=== PATIENT | female | born 1985 | race Caucasian/White ===

== ENCOUNTER → 2024-10-04 09:22 | Outpatient (REF) | payer BC, SELFPAY | LOC: PNTC 09:22 | PROVIDERS: ATTENDING PHYSICIAN Student in an Organized Health Care Education/Training Program | DX: O09.529 Supervision of elderly multigravida, unspecified trimester (principal); O34.219 Maternal care for unspecified type scar from previous cesarean delivery; O43.219 Placenta accreta, unspecified trimester | CPT/HCPCS: 76805; 93976 ==

== ENCOUNTER → 2024-11-06 08:58 | Outpatient (REF) | payer BC, SELFPAY | LOC: PNTC 08:58 | PROVIDERS: ATTENDING PHYSICIAN Student in an Organized Health Care Education/Training Program | DX: O09.529 Supervision of elderly multigravida, unspecified trimester (principal); O34.219 Maternal care for unspecified type scar from previous cesarean delivery | CPT/HCPCS: 76811 ==

== ENCOUNTER → 2024-12-04 09:02 | Outpatient (REF) | payer BC, SELFPAY | LOC: PNTC 09:02 | PROVIDERS: ATTENDING PHYSICIAN Student in an Organized Health Care Education/Training Program | DX: O36.5990 Maternal care for other known or suspected poor fetal growth, unspecified trimester, not applicable or unspecified (principal) | CPT/HCPCS: 76816 ==

== ENCOUNTER → 2025-01-01 10:57 | Outpatient (REF) | payer BC, SELFPAY | LOC: PNTC 10:57 | PROVIDERS: ATTENDING PHYSICIAN Student in an Organized Health Care Education/Training Program | DX: O36.5990 Maternal care for other known or suspected poor fetal growth, unspecified trimester, not applicable or unspecified (principal); O09.529 Supervision of elderly multigravida, unspecified trimester | CPT/HCPCS: 76816 ==

== ENCOUNTER → 2025-01-29 08:57 | Outpatient (REF) | payer BC, SELFPAY | LOC: PNTC 08:57 | PROVIDERS: ATTENDING PHYSICIAN Student in an Organized Health Care Education/Training Program | DX: O36.5990 Maternal care for other known or suspected poor fetal growth, unspecified trimester, not applicable or unspecified (principal) | CPT/HCPCS: 59025; 76816 ==

== ENCOUNTER → 2025-02-05 09:28 | Outpatient (REF) | payer BC, SELFPAY | LOC: PNTC 09:28 | PROVIDERS: ATTENDING PHYSICIAN Student in an Organized Health Care Education/Training Program | DX: O09.529 Supervision of elderly multigravida, unspecified trimester (principal) | CPT/HCPCS: 59025; 76815 ==

== ENCOUNTER → 2025-02-12 09:29 | Outpatient (REF) | payer BC, SELFPAY | LOC: PNTC 09:29 | PROVIDERS: ATTENDING PHYSICIAN Student in an Organized Health Care Education/Training Program | DX: O09.529 Supervision of elderly multigravida, unspecified trimester (principal) | CPT/HCPCS: 59025; 76815 ==

== ENCOUNTER → 2025-02-20 09:28 | Outpatient (REF) | payer BC, SELFPAY | LOC: PNTC 09:28 | PROVIDERS: ATTENDING PHYSICIAN Student in an Organized Health Care Education/Training Program | DX: O09.529 Supervision of elderly multigravida, unspecified trimester (principal) | CPT/HCPCS: 59025; 76815 ==

== ENCOUNTER → 2025-02-26 09:32 | Outpatient (REF) | payer BC, SELFPAY | LOC: PNTC 09:32 | PROVIDERS: ATTENDING PHYSICIAN Student in an Organized Health Care Education/Training Program | DX: O36.5990 Maternal care for other known or suspected poor fetal growth, unspecified trimester, not applicable or unspecified (principal) | CPT/HCPCS: 59025; 76816 ==

== ENCOUNTER → 2025-03-05 09:35 | Outpatient (REF) | payer BC, SELFPAY | LOC: PNTC 09:35 | PROVIDERS: ATTENDING PHYSICIAN Student in an Organized Health Care Education/Training Program | DX: O09.529 Supervision of elderly multigravida, unspecified trimester (principal) | CPT/HCPCS: 59025; 76815 ==

== ENCOUNTER → 2025-03-12 09:33 | Outpatient (REF) | payer BC, SELFPAY | LOC: PNTC 09:33 | PROVIDERS: ATTENDING PHYSICIAN Student in an Organized Health Care Education/Training Program | DX: O09.523 Supervision of elderly multigravida, third trimester (principal) | CPT/HCPCS: 59025; 76815 ==

== ENCOUNTER → 2025-03-19 09:30 | Outpatient (REF) | payer BC, SELFPAY | LOC: PNTC 09:30 | PROVIDERS: ATTENDING PHYSICIAN Student in an Organized Health Care Education/Training Program | DX: O09.529 Supervision of elderly multigravida, unspecified trimester (principal) | CPT/HCPCS: 59025; 76815 ==

== ENCOUNTER 2025-03-21 03:46 | Inpatient (IN) | payer BC, SELFPAY ==
[2025-03-21 03:50] VITALS: BMI 27.3
[2025-03-21 03:53] VITALS: BP 123/80
[2025-03-21] MEDS: LR 1000 IV ×2 (03:55→05:52)
[2025-03-21 04:26] LABS: % Basophils 0.4 % (0-2); % Eosinophils 1.9 % (0-6); % Immature Granulocytes 0.4 % (0-0.5); % Lymphocytes 19.4 % (20.5-51.1); % Monocytes 7.2 % (1.7-9.3); % Neutrophils 70.7 % (42.2-75.2); Absolute Basophils 0.1 10^3/uL (0-0.2); Absolute Eosinophils 0.2 10^3/uL (0-0.7); Absolute Immature Granulocytes 0.1 10^3/uL (0-0.05); Absolute Lymphocytes 2.4 10^3/uL (1.2-3.4); Absolute Monocytes 0.9 10^3/uL (0.1-0.6); Absolute Neutrophils 8.9 10^3/uL (1.4-6.5); Hematocrit 34.1 % (37.0-47.0); Hemoglobin 11.9 g/dL (12.0-16.0); Mean Corp Hgb Conc. 34.9 g/dL (33.0-37.0); Mean Corpuscular Hgb 30.4 pg (27.0-31.0); Nucleated Red Blood Cells % 0 %; Platelet Count 245 10^3/uL (130-400); Red Blood Cell Count 3.92 10^6/uL (4.20-5.40); Red Cell Dist. Width 13.5 % (11.5-14.5); White Blood Cell Count 12.6 10^3/uL (4.8-10.8)
[2025-03-21] MEDS: SUBLIMAZE 100 MCG EPIDURAL (04:40)
[2025-03-21] MEDS: FENTANYL/BUPIVACAINE 100 EPIDURAL (04:41)
[2025-03-21 09:42] LABS: Cord VBG B.E. - POC -5.2 mmol/L; Cord VBG HCO3 - POC 21 mmol/L; Cord VBG O2 Sat % - POC 52.6 %; Cord VBG pCO2 - POC 41 mmHg; Cord VBG pH - POC 7.31; Cord VBG pO2 - POC 30 mmHg
[2025-03-21] MEDS: TYLENOL 650 MG PO (12:33)
[2025-03-21] MEDS: TORADOL 15 MG IV ×2 (14:48→21:00)
--- NOTE | 2025-03-21 22:08 | HPS.HSE ---
Family Physician
-
Family Physician: Gustavo Taveras
Chief Complaint
-
labor
History of Present Illness
HPI: Patient is a 39yo @40.0 who presented to labor and delivery with complaints of contractions. She has a history of one prior and desires TOLAC.
complications
- Hx C/Sx1, NRFHTs
- Advanced maternal age
- IVF
- Hx child w/ VATER syndrome
PMHx: oral herpes
Meds: PNV, Valtrex prn
Surghx: C/Sx1
NKDA
Socialhx: denies tobacco, etoh or illicit drug use
Famhx: PGM w/ colon cancer
OBHx: SVDx2, C/Sx1
FHT: 140 baseline/moderate variability/+accelerations/occasional variable decel
[place]: ctx q3-5 min
Medical History
Past Medical History
Past Medical History: Reports Other
Past Surgical History: Reports
Social History
Tobacco: Non-smoker
Alcohol: None
Drug: None
Family History
Family History: Cancer
Allergies / Home Medications
Allergies reflects when Allergies were last updated in [facility].
Home Medications with original date entered in [facility] [facility]
Allergy/Medication List:
Meds: Valtrex prn, PNV
NKDA
Review of Systems
-
A 12 point ROS was completed and negative except as noted: Yes
Physical Exam
Vital Signs
Vital Signs
Temp Pulse Resp BP Pulse Ox
98.4 F 78 20 123/80 100
03/21/25 03:53 03/21/25 03:53 03/21/25 03:53 03/21/25 03:53 03/21/25 03:53
Physical Exam
General: Well Developed and Well Nourished
HEENT: NormoCephalic
Respiratory: Non Labored Respirations
Cardiac: Regular Rhythm
Skin: Warm and Dry
Neuro: Awake
Psych: Calm
Laboratory Results
-
03/21/25 04:09
Impression/Plan
-
IMPRESSION:
Patient is a 39yo @40.0 presents with contractions, desires TOLAC
PLAN:
- Patient admitted for expectant management
- Epidural
- Monitor tracing with variable decelerations
--- NOTE | 2025-03-21 22:19 | OR.RPT ---
Operative Report
Operative Report
Procedure date: 03/21/2025
Preop diagnosis: IUP @40.0, hx C/Sx1, non-reassuring heart tones, failed TOLAC
Postop diagnosis: same, tight nuchal x1
Procedure: Repeat low transverse section
Surgeon: Pascale
Blueprinting And Photocopy Supervisor: Arnel
Anesthesia: Pako, epidural
QBL: 260mL
Findings: viable male infant born at 0910, Apgars 8/9, tight nuchal x1, reduced, unable to exteriorize uterus due to tight abdomen. Skin oozing at the end of the procedure- pressure dressing placed
Complications: none
Indication: Patient is a 39yo @40.0 who presented to Labor and Delivery with complaints of contractions. She was 2cm on admission and was having occasional variable decelerations. She received an epidural and progressed to 4cm. The tracing
was category one but then had variable decelerations followed by a prolonged 2 minute deceleration. Artificial rupture of membranes was performed and FSE was placed. She was 4/90/-2 and FSE was placed. Variable decelerations continued despite
position changes. It was recommended to proceed with urgent section for non-reassuring heart tone. Consents had previously been signed in the office. Anesthesia was notified. Ancef and azithromycin were ordered for antibiotic
prophylaxis.
Procedure: Patient was taken to the operating room where epidural anesthesia was bolused and found to be adequate. 2g of Ancef and 500mg of Azithromycin were given for antibiotic prophylaxis. The abdomen was prepped with ChloraPrep. The patient was
draped in the normal sterile fashion. She was placed in the dorsal supine position with a left lateral tilt. A Pfannenstiel incision was made with a 10 blade and carried down to the fascia with a scalpel. The fascia was incised and dissected
laterally with Frias scissors. The superior aspect of the fascia was grasped with Anca clamps. The underlying rectus fascia was sharply dissected with Frias scissors. In a similar fashion the inferior aspect of the fascia was elevated with Anca
clamps and the rectus muscle was dissected off with Frias scissors. The rectus muscles were down the midline to the level of the pubic symphysis with manual dissection. The peritoneum was elevated with a hemostat and entered with Metzenbaum
scissors. The peritoneum was extended using manual traction.
Casillas retractor and bladder blade were placed revealing good visualization of the bladder. The vesicouterine peritoneum was identified. A thin lower uterine segment was noted. The lower uterine segment was incised with a scalpel. Clear fluid
noted at entry. The uterine incision was extended bluntly with lateral and upward traction.
The fetus was in cephalic presentation. The head was elevated out of the pelvis with special attention paid to avoid using the uterine incision as a fulcrum. Gentle fundal pressure was applied once the head was brought to the incision and the head
delivered through the hysterotomy. There was a tight nuchalx1 that was reduced. The rest of the delivered without difficulty. Delayed cord clamping was performed per neonatology. The was handed off to the cane piler. IV oxytocin was
started to facilitate uterine contractions. The placenta was delivered with fundal massage and gentle downward traction. The uterus was not able to be exteriorized due to tight abdominal muscles. Allis clamps were placed at the apices of the
hysterotomy. The inside of the uterus was wiped with a lap sponge to assure complete removal of placental membranes. Fundal massage was performed and uterus was firm. The uterine incision was closed with 0 Vicryl in a running locked fashion. A
horizontal imbricating stitch was done on the hysterotomy with 0 Vicryl. The hysterotomy was inspected and noted to be hemostatic. Blood clots and fluid were wiped out of the abdomen and pelvis with moist laparotomy sponges. The hysterotomy was
inspected again and was hemostatic.
The rectus muscles were inspected and were hemostatic. The fascial layer was closed in a running continuous fashion using 0 Vicryl. The subcutaneous tissue was copiously irrigated and any small bleeding vessels were cauterized with Bovie cautery.
The subcutaneous tissue was reapproximated in a running continuous fashion with 2-0 Plain. The skin was closed with 4-0 Vicryl in a subcuticular fashion and covered with steri strips. There was oozing from the skin edges and a pressure dressing was
placed. The patient tolerated the procedure well. All sponge and instrument counts were correct times two. The patient was taken to the recovery room in stable condition. Sarmiento catheter was draining clear urine at the end of the procedure.
[2025-03-22] MEDS: TORADOL 15 MG IV ×2 (03:03→08:58)
[2025-03-22 05:18] LABS: Hematocrit 27.5 % (37.0-47.0); Hemoglobin 9.7 g/dL (12.0-16.0); Mean Corp Hgb Conc. 35.3 g/dL (33.0-37.0); Mean Corpuscular Volume 87.9 fL (81.0-99.0); Mean Platelet Volume 9.8 fL (7.4-10.4); Platelet Count 210 10^3/uL (130-400); Red Blood Cell Count 3.13 10^6/uL (4.20-5.40); Red Cell Dist. Width 13.6 % (11.5-14.5); White Blood Cell Count 15.1 10^3/uL (4.8-10.8)
--- NOTE | 2025-03-22 07:31 | W.PN.ANS.POP ---
Anesthesia Post Operative
- Anesthesia Post Op Note
Vital Signs Stable-See Nursing Note: Yes
Airway Patent: Yes
Adequate Pain Control: Yes
Change in Mental Status: No
Current Postoperative Nausea & Vomiting: No
Anesthesia Complications: No
General Anesthetic Recall: No
Unplanned Admission: No
Post Op Hydration Adequate: Yes
[2025-03-22] MEDS: PRENATAL PLUS 1 TABLET PO (07:36)
[2025-03-22] MEDS: MOTRIN 600 MG PO ×2 (15:06→22:39)
[2025-03-22] MEDS: PERCOCET 5/325 1 TABLET PO (19:58)
[2025-03-23] MEDS: MOTRIN 600 MG PO ×2 (05:17→18:01)
[2025-03-23] MEDS: TYLENOL 650 MG PO ×4 (05:17→22:04)
[2025-03-23] MEDS: PRENATAL PLUS 1 TABLET PO (07:43)
[2025-03-23] MEDS: SENOKOT-S 1 TABLET PO (09:30)
[2025-03-23] MEDS: FEOSOL 325 MG PO (09:30)
[2025-03-23 14:23] LABS: Syphilis/T. pallidum Ab Reflex Negative (Negative)
[2025-03-24] MEDS: MOTRIN 600 MG PO ×2 (00:03→06:15)
[2025-03-24] MEDS: TYLENOL 650 MG PO (06:14)
--- NOTE | 2025-03-24 08:23 | W.DS.TRANS ---
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
-
Discharge Instructions:
Discharge Diagnosis/Procedures rcs
Instructions:
Stand-Alone Forms: LDRP Delivery
Changes to Home Medications: No
Discharge Medications:
DC Medications w/original date entered in [facility]
[id number]-[id number] 1 mg tablet 1 tab PO DAILY Supplement 07/20/22
ibuprofen 600 mg tablet 600 mg PO Q6HPRN PRN cramps #90 tabs 03/24/25
Home Medication Changes
Pending Results: No
Total time spent discharging patient (in min): 15
[2025-03-24] MEDS: PRENATAL PLUS PO (08:56)
[2025-03-24] MEDS: FEOSOL PO (08:56)
== END 2025-03-24 12:00 | disposition home or self-care (01) | DRG 788 ==
LOC: LDRP 03:46
PROVIDERS: Student in an Organized Health Care Education/Training Program; ADMITTING PHYSICIAN Obstetrics & Gynecology; FAMILY PHYSICIAN Family Medicine
PROC: 10907ZC Drainage of Amniotic Fluid, Therapeutic from Products of Conception, Via Natural or Artificial Opening (ICD-10-PCS; 2025-03-21)
PROC: 10H07YZ Insertion of Other Device into Products of Conception, Via Natural or Artificial Opening (ICD-10-PCS; 2025-03-21)
PROC: 10D00Z1 Extraction of Products of Conception, Low, Open Approach (ICD-10-PCS; 2025-03-21)
DX: O34.211 Maternal care for low transverse scar from previous cesarean delivery (principal); O76 Abnormality in fetal heart rate and rhythm complicating labor and delivery; O66.41 Failed attempted vaginal birth after previous cesarean delivery; O69.1XX0 Labor and delivery complicated by cord around neck, with compression, not applicable or unspecified; O90.81 Anemia of the puerperium; D64.9 Anemia, unspecified; Z37.0 Single live birth; Z3A.40 40 weeks gestation of pregnancy
CPT/HCPCS: 88307; 36415; 85025; 85027; 86780; 86850; 86900; 86901